=== PATIENT | male | born 1955 | race Asian ===

== ENCOUNTER 2017-11-27 15:27 | Emergency (ER) | payer BC ==
[~2017-11-27] VITALS: Ht 160 cm; Wt 72.7 kg
[~2017-11-27 15:27] MED LIST: LIPITOR 40MG TA40 MG PO; XANAX 0.5MG0.5 MG PO
[2017-11-27 15:34] VITALS: BP 125/73; PULSE 66; TEMP 96.9
== END 2017-11-27 17:39 | disposition left against medical advice (07) ==
LOC: COL.ER 15:27
DX: S61.215D Laceration without foreign body of left ring finger without damage to nail, subsequent encounter (principal); X58.XXXD Exposure to other specified factors, subsequent encounter

== ENCOUNTER → 2018-12-09 | Outpatient (CLI) | payer BC | LOC: MC.RAD 09:27 | DX: N63.42 Unspecified lump in left breast, subareolar (principal); N62 Hypertrophy of breast ==

== ENCOUNTER → 2020-04-30 | Outpatient (CLI) | payer BC | LOC: COL.RAD 09:13 | DX: N50.3 Cyst of epididymis (principal) ==